=== PATIENT | female | born 1995 | race Caucasian/White ===

== ENCOUNTER 2019-02-12 06:04 | Day surgery (SDC) | payer BC ==
[2019-02-05 16:51] VITALS: BMI 22.3
[2019-02-12] MEDS ORDERED: MIDAZOLAM HCL 2 MG/2 ML SINGLE DOSE VIAL ONE (06:52)
[2019-02-12] MEDS ORDERED: SUCCINYLCHOLINE CHLORIDE 200 MG/10 ML VIAL ONE (06:57)
[2019-02-12] MEDS ORDERED: ROCURONIUM BROMIDE 50 MG/5 ML VIAL ONE ×2 (06:57→08:04)
[2019-02-12] MEDS ORDERED: PROPOFOL 20 ML ONE ×2 (06:58→08:05)
[2019-02-12] MEDS ORDERED: LIDOCAINE HCL/PF 2% SDV 5ML VIAL ONE (06:58)
[2019-02-12] MEDS ORDERED: ONDANSETRON 4 MG/2 ML VIAL ONE ×2 (06:58→08:04)
[2019-02-12] MEDS ORDERED: DEXAMETHASONE SOD PHOSPHATE 4 MG/1 ML VIAL ONE ×2 (06:58→08:04)
[2019-02-12] MEDS ORDERED: KETOROLAC TROMETHAMINE 30 MG/1 ML VIAL ONE (06:58)
[2019-02-12] MEDS ORDERED: oxyCODONE HCL 5 MG TABLET PO PRN ×2 (07:09)
[2019-02-12] MEDS ORDERED: ONDANSETRON 4 MG/2 ML VIAL IVPUSH PRN (07:09)
[2019-02-12] MEDS ORDERED: LACTATED RINGERS SOLUTION 1,000 ML IV SCH (07:15)
[2019-02-12] MEDS ORDERED: LIDOCAINE 1%/EPI 1:100000 (20 ML MULTI DOSE VIAL) ONE (07:21)
[2019-02-12] MEDS ORDERED: COCAINE HCL 4% TOPICAL SOLUTION 4 ML BOTTLE TP ONE ×2 (07:22→08:22)
[2019-02-12] MEDS ORDERED: ceFAZolin SODIUM 1 GM VIAL ONE (08:02)
[2019-02-12] MEDS ORDERED: LIDOCAINE 1%/EPI 1:100000 (20 ML MULTI DOSE VIAL) IJ ONE ×2 (08:28)
[2019-02-12] MEDS ORDERED: NEOSTIGMINE METHYLSULFATE 0.5 MG/ML - 10 ML MDV ONE (09:13)
[2019-02-12] MEDS ORDERED: GLYCOPYRROLATE 0.2 MG/1 ML VIAL ONE (09:23)
[2019-02-12] MEDS ORDERED: MIDAZOLAM HCL 2 MG/2 ML SINGLE DOSE VIAL IVPUSH ONE (10:23)
[2019-02-12] MEDS ORDERED: ACETAMINOPHEN 1000 MG/100 ML VIAL (NON FORMULARY) IVPB ONE (10:24)
--- NOTE | 2019-02-12 10:35 | OP ---
Operative Note - Note: Operative Date: 02/12/19 Pre-Operative Diagnosis: deviated septum. hypertrophic turbinates Operation: septoplasty and turbinectomies Findings: dns, large turbinates Post-Operative Diagnosis: Same as Pre-op Surgeon: Lloyd Isaacs Anesthesiologist/IVORY CARVER: Hever Maldonado Anesthesia: General Specimens Removed: septum and turbinates Estimated Blood Loss (mls): 50 Blood Volume Replaced (mls): 0 Fluid Volume Replaced (mls): 500 Operative Report Dictated: Yes
[2019-02-12] MEDS ORDERED: ACETAMINOPHEN INJECTION 100 ML IVPB ONE (11:28)
[2019-02-12 11:37] VITALS: TEMP 98.3
[2019-02-12 12:10] VITALS: BP 114/68; PULSE 64
--- NOTE | 2019-02-12 13:55 | OP ---
DATE OF OPERATION: 02/12/2019 PREOPERATIVE DIAGNOSES: Deviated nasal septum and bilateral inferior turbinate hypertrophy. POSTOPERATIVE DIAGNOSES: Deviated nasal septum and bilateral inferior turbinate hypertrophy. PROCEDURE: Septoplasty and submucous resection of the bilateral inferior turbinates. SURGEON: Lloyd Bee MD ANESTHESIA: General endotracheal by Hever Maldonado MD. INDICATIONS: The patient is a 23-year-old woman with chronic nasal obstruction, refractory to medication management, who requests surgery. Physical examination reveals a right-sided deviated nasal septum and bilateral inferior turbinate hypertrophy. The nature and purpose of the proposed procedure as well as the risks, benefits, alternatives, and possible complications were discussed in detail with the patient who appears to understand and wishes to proceed with surgery. All questions were answered, and informed consent was given by the patient. PROCEDURE DESCRIPTION: With the patient under general endotracheal anesthesia in the supine position with her back raised, she was prepped and draped in the usual sterile fashion. The nose was decongested with 4% topical cocaine on pledgets as well as injected 1% lidocaine with epinephrine 1:100,000. Approximately 15 mL of the injection solution was injected through the course of the procedure. After waiting several minutes, the cottonoid pledgets were removed, and the procedure was begun on the left inferior turbinate. The anteroinferior portion was sharply resected, and through the resulting defect a tunnel of mucosa was created medially and laterally to the inferior turbinate bone, which was then removed from the pocket. The mucosa was cauterized with suction cautery, and then, a Reflex 45 Coblation wand was used on the superior surface to create a few lesions on an ablation setting of 6. This procedure was then performed in an identical fashion on the opposite side. The septum was then addressed. A left-sided hemitransfixion incision was made, and a left mucosal flap was elevated intact. An oblique incision was made on the septal cartilage, keeping a 1.5-cm caudal strut intact, and through this, a right-sided mucosal flap was elevated intact. Deflected portions of septal bone and cartilage were resected. Hemostasis was achieved with suction cautery. A drain hole was cut on the left using suction cautery. The septum was coapted with septal lexx, and then, the incision was closed with 4-0 chromic. Fibrillar Surgicel was then packed into each nostril to support the septum and help with hemostasis. This was moistened with saline. A nasal tip dressing was then applied, and when the patient awakened, she was extubated and discharged to the recovery room in satisfactory condition. Estimated blood loss: 50 mL. There were no complications. LLOYD BEE M.D. ANSHUL/[id number] MTDD
--- NOTE | 2019-02-19 13:05 | PATH ---
Surgical Pathology Report Patient Name: HAILEY DEL CID Med. Rec. #: [id number] /Age/Gender: 1995 (Age: 23) / F Account: [id number] [facility] Taken: 02/12/2019 Received: 02/12/2019 Reported: 02/15/2019 Physicians: Lloyd Isaacs Specimen(s) Received SEPTUM AND/OR TURBINATES Clinical History Hypertrophy, nasal turbinates and deviated septum Final Diagnosis SEPTUM AND TURBINATES, EXCISION: CHRONIC SINUSITIS. FRAGMENTS OF BONE AND CARTILAGE WITH VASCULAR CONGESTION. Electronically Signed Kiersten Noriega M.D. Gross Description Received in formalin labeled "septum and turbinates" are multiple irregular fragments of pink to white -hcino soft tissue, cartilage and bone measuring 5 x 4 x 2 cm in aggregate. Route [employer] D[employer] Supervisor sections are submitted in one cassette after decalcification. MLSZ/02/13/2019 sanalan/02/13/2019
== END 2019-02-12 12:10 | disposition home or self-care (01) ==
LOC: FASU 06:04
PROVIDERS: ATTEND Otolaryngology
PROC: 09SM0ZZ Reposition Nasal Septum, Open Approach (ICD-10-PCS; principal; 2019-02-12 08:04)
DX: J34.2 Deviated nasal septum (principal); J34.3 Hypertrophy of nasal turbinates
CPT/HCPCS: 81025; 88304-TC; 88311-TC; 94760; J0131